=== PATIENT | female | born 1995 | race Caucasian/White ===

== ENCOUNTER → 2019-06-02 10:33 | Outpatient (CLI) | payer OTHER, MEDICAID, SELFPAY ==
[2019-06-02 10:47] LABS: RBC Urine None Seen (0-5/HPF); WBC Urine None Seen (0-5/HPF)
[2019-06-02 11:40] LABS: Appearance Urine UA CLEAR; Bilirubin Urine UA NEGATIVE (NEGATIVE); Color Urine UA YELLOW; Glucose Urine UA NEGATIVE (Negative); Ketones Urine UA NEGATIVE (NEGATIVE); Leukocyte Esterase Urine UA NEGATIVE (NEGATIVE); Nitrite Urine UA NEGATIVE (Negative); Occult Blood Urine UA NEGATIVE (Negative); Protein Urine UA NEGATIVE (Negative); Specific Gravity Urine UA <=1.005 (1.000-1.035); Urobilinogen Urine UA 0.2 E.U./dL (0.2)
[2019-06-02 11:59] LABS: pH Urine UA 6.5 (4.5-8.0)
[2019-06-02 12:00] LABS: Bacteria Urine Many (>30); Culture Indicated Urine Cult Not Indicated; Squamous Epithelial Cell Urine 5-10 /HPF (0-5/HPF)
== END ==
DX: R30.0 Dysuria (principal)
CPT/HCPCS: 81001

== ENCOUNTER → 2022-11-28 12:32 | Outpatient (CLI) | payer OTHER, MEDICAID, SELFPAY ==
[2022-11-30 20:07] LABS: AFP, Serum 46.9 ng/mL (.); Estriol, Free 1.51 ng/mL (.); Inhibin A, Dimeric 161.25 pg/mL (.); Inhibin A, MoM 1.24 (.); Maternal Ethnicity Caucasian (.); Maternal Weight 204 lbs (.); Number of Fetuses No (.); OSBR Risk 1 IN 6499 (.); Results Report (.); Test Results *Screen Negative* (.); hCG, MoM 0.97 (.); hCG, Serum 22560 mIU/mL (.)
== END ==
PROVIDERS: Referring Provider Obstetrics & Gynecology; Visit Provider Obstetrics & Gynecology
DX: Z34.82 Encounter for supervision of other normal pregnancy, second trimester (principal); Z3A.18 18 weeks gestation of pregnancy
CPT/HCPCS: 36415; 82105; 82677; 84702; 86336

== ENCOUNTER → 2022-12-12 10:11 | Outpatient (CLI) | payer OTHER, MEDICAID, SELFPAY ==
--- NOTE | 2022-12-12 10:12 | DI.US.S_ITS ---
PROCEDURE: US OB >= 14 WEEKS FETUS INDICATIONS: ANATOMY OUTSIDE/PRIOR DATING DATA: Last menstrual period (LMP): 07/22/2022. LMP-based estimated date of delivery (RISHI): 04/28/2023. First dating scan (date and location): 12/12/2022. Estimated date of delivery (RISHI) from first dating scan: 04/24/2023. The calculations are made using the working RISHI of 04/28/2023. TECHNIQUE: Real-time scanning was performed of the fetus, with image documentation and biometric measurements. Endovaginal scanning: None COMPARISON: None. FINDINGS: General: A single living intrauterine gestation is present. Presentation: Transverse. Placenta: Placental position is posterior , without previa. Amniotic fluid index: 17.9 cm, normal range is 5-24 cm. Single deepest vertical pocket is 5.5 cm. heart rate: 139 beats per minute. Maternal cervical canal: 5.3 cm long. Normal lower limit is 2.5 cm. biometrics: Biparietal diameter: 4.9 cm, 20 week 6 day Head circumference: 18.9 cm, 21 week 2 day Abdominal circumference: 15.7 cm, 20 week 6 day Femur length: 3.5 cm, 21 week 1 day Clinically estimated gestational age: 20 week 3 day Composite gestational age from present scan: 21 week 0 day Estimated weight and percentile: 391 g, 76th percentile Anatomic survey: Neuro: Ventricles are non-dilated at less than 10 mm. Cisterna magna is normal at 3-11 mm. Cerebellum is normal in size and morphology. Nuchal skin fold: Normal at less than 6 mm between 14-21 weeks gestational age. Face: Nose and lips, facial profile are normal. Spine: No evidence for spina bifida. Heart: 4-chambered heart is present, with normal ventricular outflow tracts. Diaphragm: Diaphragm is intact. Stomach: Left-sided stomach is present. Kidneys: No hydronephrosis. Normal is less than 5 mm in 2nd trimester, less than 7 mm in 3rd trimester. Cord: 3-vessel cord has orthotopic insertion. Bladder: Normal in size. Extremities: All 4 extremities identified. IMPRESSION: Single live intrauterine consistent with a 21 week 0 day gestation by current ultrasound Approved by: Ricardo Casey M.D. on 12/12/2022 at 17:20
== END ==
PROVIDERS: Referring Provider Obstetrics & Gynecology; Visit Provider Obstetrics & Gynecology
DX: Z34.82 Encounter for supervision of other normal pregnancy, second trimester (principal); Z3A.21 21 weeks gestation of pregnancy
CPT/HCPCS: 76811

== ENCOUNTER 2023-05-01 19:09 | Inpatient (IN) | payer OTHER, MEDICAID, SELFPAY ==
--- NOTE | 2023-05-01 20:28 | PM.OBHP.1 ---
OB HPI Date/Time Date of admission: 05/01/23 Date Patient Seen: 05/01/23 Time Patient Seen: 20:29 History of Present Condition Chief complaint: LABOR : 4 Para: 2 Estimated Date of Delivery: 04/28/23 Estimated Gestational Age (weeks): 40 Narrative: Desiree Lamar is a 27 year old female admitted for change in cervical dilation, group B strep positive with history of fast labor Indications Indication for induction OB: history of rapid labor History of Present care: good care, initiated at week # (6), number of visits (11) and pounds weight gain (24) Dating criteria: based on 1st trimester US only Ultrasounds: normal mid trimester US Obstetrical complications: none Medical complications: none Preadmission Labs Blood type: A (+) positive -: Antibody screen: negative, GBS status: positive (Per patient, history of group B strep positive), HBsAG: negative, HIV: negative and RPR/VDLR: negative -: Chlamydia screen: not detected and Gonorrhea screen: not detected -: Rubella: immune and Varicella: immune HCAB: negative Quad screen: Normal 1 hr GTT: 92 Prior (ies) History: 03/09/13 38 9 7 lb 11 oz Femalevaginallive - full term IH 9 months noneHailee 02/19/17 40 6 8 lb 6 oz Malevaginallive - full termnoneIH 6 months noneGraycyn 10/10/18 14 spontaneous Evaluation Evaluation Baseline heart rate: 150 Variability: Moderate (11-25) monitor accelerations: Present Monitor Decelerations: Absent Contraction Frequency (minutes): 0 Category of Tracing: Reactive Status: Category l Dilation (cm): 5 Effacement (%): 80 station: -1 Position of cervix: posterior Consistency: soft PFSH Medical History (Updated 05/01/23 @ 17:32 by Tram Spears MD) Hemorrhagic ovarian cyst Migraine depression Surgical History (Updated 10/19/22 @ 08:38 by Sudha Santiago RN) H/O dilation and curettage (~10/10/18) History of third molar tooth extraction History of tonsillectomy Status post myringotomy with insertion of tube Family History (Updated 10/19/22 @ 08:39 by Sudha Santiago RN) Mother Endometriosis Social History marital status: unmarried,living together number of children: 2 (pt's children live with their father) household members: significant other lives independently: Yes housing: other (trailer) pets and animals: No education level: high school (11th grade) occupational status: employed (works in a sandwich shop) current occupational exposures/hazards: No special titus needs: No travel history: over 6 months ago seatbelt use: always water heater temp set < 120 deg: Yes working smoke detector in home: Yes fire extinguisher in home: Yes carbon monox detector in home: Yes firearms in home: No do you feel safe at home: Yes Smoking Status: Former smoker (Quit 07/2021) second hand exposure: No alcohol intake: never substance use type: does not use during the past year weight has: increased > 10 lbs (states usually weighs ~160 lb) daily servings fruits/ve or more times/day caffeine: Yes (1 cup coffee in AM) Type(s) of exercise: walking (3-4 miles/day to work and home) frequency: 5-6 times per week Meds Home Medications and Allergies Home Medications Medication Instructions Recorded Confirmed Type ferrous sulfate 325 mg (65 mg 325 mg PO Q3-4D 10/19/22 05/01/23 History iron) tablet prenat.vits,deirdre,[id number] 1 tab PO DAILY 10/19/22 05/01/23 History acyclovir 400 mg tablet 400 mg PO QID 05/01/23 05/01/23 History Allergies Allergy/AdvReac Type Severity Reaction Status Date / Time Penicillins [PENICILLINS] Allergy Severe , Unverified 05/01/23 16:47 FAMILY HISTORY adhesive [ADHESIVE] Allergy Mild RASH Unverified 05/01/23 16:47 diphenhydramine AdvReac Severe TWITCH Unverified 05/01/23 16:47 [From BENADRYL ALLERGY] ondansetron AdvReac Severe N/V SHAKES Unverified 05/01/23 16:47 [From ZOFRAN ( SWEATS HYDROCHLORIDE)] sertraline [From ZOLOFT] AdvReac Severe N/V Unverified 05/01/23 16:47 Review of Systems Review of Systems Narrative: Patient with irregular contractions. No headaches. No leakage of fluid. Vaginal bleeding after cervix check in the office. Good movement. OB Exam Vital signs Blood Pressure: 104/62 Pulse Rate: 92 Temperature: 35.9 F Narrative Exam Narrative: HEENT exam within normal limits. Lungs are clear to auscultation percussion. Heart is regular rate and rhythm no S3-S4 murmurs. Abdomen is gravid. Fetus is vertex. Extremities without edema and nontender. Assessment and Plan Assessment and Plan Assessment and Plan narrative: 27-year-old 4 para 2, 40 week 3 day gestation with advanced cervical dilation, history of positive group B strep and fast labor. Patient will be started on IV antibiotics and AROM after 4 hours.
[2023-05-01 20:36] VITALS: BP 104/62; PULSE 92; TEMP 2.2; TEMP 35.9
[2023-05-01 21:35] LABS: Add Manual Diff / Slide Review NO; Basophils Absolute Auto 0 /uL (0-100); Basophils Percent Auto 0.2 % (0-2); Eosinophils Absolute Auto 100 /uL (0-450); Eosinophils Percent Auto 0.7 % (2-4); Hematocrit 34.8 % (36-46); Lymphocytes Absolute Auto 1300 /uL (1100-4500); Lymphocytes Percent Auto 13.6 % (25-40); Mean Corpuscular HGB Conc 34.4 % (30-36); Mean Corpuscular Hemoglobin 31.9 PG (26-34); Mean Corpuscular Volume 92.9 fL (80-100); Monocytes Absolute Auto 500 /uL (0-900); Neutrophils Absolute Auto 7400 /uL (1500-7000); Neutrophils Percent Auto 80.5 % (50-75); Platelet Count 233 X10^3/uL (150-400); Red Blood Cell Count 3.75 X10^6/uL (4.0-5.2); White Blood Cell Count 9.2 X10^3/uL (4.5-11.0)
[2023-05-01] MEDS: CLINDAMYCIN 900 MG/50 ML PIGGYBACK 50 MG IV (21:35)
[2023-05-01] MEDS: LACTATED RINGERS 1,000 ML 100 ML IV (21:35)
[2023-05-02 00:40] LABS: UR Morphine/Opiate cutoff 300 Negative (Negative); Ur Creatinine 20 (Normal); Ur Specific Gravity 1.015 (Normal); Urine Amphetamines Negative (Negative); Urine Barbiturates Negative (Negative); Urine Benzodiazepines Negative (Negative); Urine Cocaine Negative (Negative); Urine MDMA Negative (Negative); Urine Methadone Negative (Negative); Urine Methamphetamines Negative (Negative); Urine Phencyclidine Negative (Negative); Urine Tetrahydrocannabinol Negative (Negative); Urine Tricyclic Antidepressant Negative (Negative); Urine pH 5 (Normal)
[2023-05-02 00:41] LABS: Urine Oxycodone Negative (Negative)
[2023-05-02] MEDS: CLINDAMYCIN 900 MG/50 ML PIGGYBACK 50 MG IV ×2 (05:46→13:20)
[2023-05-02 06:51] VITALS: BP 104/62
--- NOTE | 2023-05-02 07:31 | PM.OBPNLAB ---
Date/Time Date Patient Seen: 05/02/23 Time Patient Seen: 07:31 Pain Control Pain control: tolerating well Comments: Rare contractions. Blood pressure 86/47, pulse 60, temperature 36.0? Pelvic Exam Dilation (cm): 5 Effacement (%): 80 station: -1 Amniotic membrane status: Ruptured (Clear fluid) Contractions Contractions on admission: irregular Monitor mode: External Contraction pattern: Irregular Status status: Category l Heart Rate Baseline: 130 Monitor Accelerations: Present Monitor Decelerations: Absent Monitor Variability: Moderate Assessment and Plan Assessment: other (AROMed) Comments: Due to staffing unable to perform AROM until now. Anticipate vaginal delivery.
[2023-05-02] MEDS: OXYTOCIN PREMIX 30 UNIT/500 ML PLAST..BAG IV (11:59)
--- NOTE | 2023-05-02 16:14 | PM.OBPRVD ---
Labor & Delivery Delivery date: 05/02/23 Induction method: AROM Delivery monitor: external FHT and external uterine Route of delivery: L&D Laceration Description: None Estimated blood loss (mL): 300 Anesthesia Type: None [place] Baby 1: gender: Female Presentation: vertex Position: Left Occiput Anterior Placenta delivery description: Spontaneous Cord Vessel Description: 3 Vessels score (1 min): 9 score (5 min): 9 weight: 8 lb 7 oz Plan for aftercare: Routine care
[2023-05-03] MEDS: ACETAMINOPHEN 325 MG TABLET 650 MG PO (02:25)
[2023-05-03 06:24] LABS: Hematocrit 30.9 % (36-46); Hemoglobin 10.7 g/dL (12.0-16.0)
[2023-05-03] MEDS: PRENATAL VIT,CALC/IRON/FOLIC 1 TABLET 1 TAB PO (09:13)
--- NOTE | 2023-05-03 11:12 | P.PNOB_ITS ---
Subjective - OB Subjective Patient comments: no complaints and pain well controlled (08/28. PATIENT COMPLAINS OF CRAMPING WHILE . SHE STATES HER BLEEDING IS MINIMAL AT THIS TIME.) Vincent baby status: doing well Vincent feeding status: exclusively breast feeding Date Patient Seen: 05/03/23 Time Patient Seen: 11:15 Interval history: PATIENT IS STATUS POST SPONTANEOUS VAGINAL DELIVERY WITH A 300 CC BLOOD LOSS. Exam Const General: cooperative Nutritional Appearance: overweight Orientation: alert, awake and oriented x3 Bimanual Exam- Vagina & Uterus: enlarged (UTERUS IS U-2 NONTENDER) Extrem General: no calf tenderness Objective Labs 05/03/23 06:11 Labs: Laboratory Results - last 24 hr 05/03/23 06:11 Hgb 10.7 L Hct 30.9 L Assessment & Plan Plan day: 1 plan OB: routine care and follow up 6 weeks (WITH DR. DUENAS IN 4 WEEKS) Time Spent With Patient Time: Total time spent is greater than 50% in coordination of care (as documented) at patient's floor/unit and/or counseling patient: Time with patient: less than 15 minutes (REVIEWED , PELVIC REST, CONTRACEPTION. DISCUSSED PELVIC INFECTION WELL SIGNS AND SYMPTOMS OF PREECLAMPSIA.)
--- NOTE | 2023-05-03 11:19 | PM.OBDS.1 ---
Discharge Providers Provider Date of admission: 05/01/23 19:09 Discharge Date: 05/03/23 Primary care physician: MD HENRIQUE Consults: 05/01/23 21:28 Consult to Anesthesiology Urgent Comment: Consulting Provider: Anesthesiologist Reason for consultation: Epidural Has provider been notified: No Discharge provider: Malcolm Randolph MD Summary Hospital Course Date Patient Seen: 05/03/23 Time Patient Seen: 11:20 Peripartum Data Delivery Method: Natural Vaginal Laceration Description: None complications: none (MILD ANEMIA.) Status at Discharge Cognitive/behavioral status at discharge: oriented and calm Functional status at discharge: independent ambulation Overall status at discharge: patient is back to baseline Time Spent with Patient Time attestation: Total time spent providing and/or coordinating discharge services: Time spent: Less than 30 minutes Objective Labs 05/03/23 06:11 Labs: Laboratory Results - last 24 hr 05/03/23 06:11 Hgb 10.7 L Hct 30.9 L Exam Const General: cooperative, healthy appearing and comfortable Bimanual Exam- Vagina & Uterus: uterine shape normal (U -2 NONTENDER) Discharge Plan Discharge Plan Patient Disposition: Home Discharge orders & Medications Prescriptions: Continued prenat.vits,deirdre,anp-fpep-mxztg Tablet 1 tab PO DAILY Discontinued acyclovir 400 mg tablet 400 mg PO QID ferrous sulfate 325 mg (65 mg iron) tablet 325 mg PO Q3-4D Follow up/Referrals: Juanita Watts DO [Physician] - ( Appt: Dr. Watts: @ 11:30am) Visit Report/Discharge Packet Stand Alone Forms: Discharge: Care, Patient Portal/API, Stroke Signs & Symptoms Discharge Data Primary Care Provider: Miscellaneous,Doctor
== END 2023-05-03 12:01 | disposition home or self-care (01) | DRG 560 ==
PROVIDERS: Admitting Provider Specialist; Referring Provider Specialist; Visit Provider Specialist
DX: O98.82 Other maternal infectious and parasitic diseases complicating childbirth (principal); B95.1 Streptococcus, group B, as the cause of diseases classified elsewhere; Z3A.40 40 weeks gestation of pregnancy; Z37.0 Single live birth; O90.81 Anemia of the puerperium; D64.9 Anemia, unspecified
CPT/HCPCS: 36415; 59050; 59409; 80305; 85014; 85018; 85025; 86850; 86900; 86901; G0379; J2590

== ENCOUNTER 2025-02-21 22:00 | Emergency (ER) | payer OTHER, MEDICAID, SELFPAY ==
[2025-02-21 22:04] VITALS: BP 119/66; PULSE 98; RESP 20; TEMP 36.8; O2SAT 100; BMI 28.3
[2025-02-21] MEDS: IBUPROFEN 400 MG TABLET 800 MG PO (22:14)
[2025-02-21 22:25] LABS: Strep Grp A by PCR Rapid Positive (Negative)
[2025-02-21 22:59] LABS: Influenza A - CEPHEID Flu A NEGATIVE (NEGATIVE); Influenza B - CEPHEID Flu B NEGATIVE (NEGATIVE)
--- NOTE | 2025-02-21 23:00 | ED_ITS ---
HPI - URI/Sore Throat General Chief Complaint: Upper Respiratory Symptoms Stated Complaint: lip pain, neckpainx 4 days Time Seen by Provider: 02/21/25 22:58 Source: patient Mode of arrival: Ambulatory History of Present Illness HPI Narrative: 29-year-old female with 4 days duration sore throat, not really having any cough or ear pain or sinus congestion symptoms. Not currently taking any antibiotics. History of penicillin allergy noted. No recent exposure to any persons known to have strep. No recent exposure to other persons who also have sore throat. Moving neck well. Able to handle secretions. Related Data Home Medications ?Medication ?Instructions ?Recorded ?Confirmed prenat.vits,deirdre,mux-xojt-roada 1 tab PO DAILY 10/19/22 05/31/23 Previous Rx's ?Medication ?Instructions ?Recorded azithromycin 250 mg tablet 250 mg PO DAILY 4 days #4 t abs 02/21/25 Allergies Allergy/AdvReac Type Severity Reaction Status Date / Time Penicillins (PENICILLINS) Allergy Severe , Verified 02/21/25 22:05 FAMILY HISTORY adhesive (ADHESIVE) Allergy Mild RASH Verified 02/21/25 22:05 diphenhydramine (From AdvReac Severe TWITCH Verified 02/21/25 22:05 BENADRYL ALLERGY) ondansetron (From ZOFRAN ( AdvReac Severe N/V SHAKES Verified 02/21/25 22:05 HYDROCHLORIDE)) SWEATS sertraline (From ZOLOFT) AdvReac Severe N/V Verified 02/21/25 22:05 Patient History Medical History (Updated 02/21/25 @ 23:10 by Rafael Mari MD) Migraine depression Hemorrhagic ovarian cyst Surgical History (Updated 10/19/22 @ 08:38 by Sudha Santiago RN) H/O dilation and curettage (~10/10/18) Status post myringotomy with insertion of tube History of tonsillectomy History of third molar tooth extraction Family History (Updated 10/19/22 @ 08:39 by Sudha Santiago RN) Mother Endometriosis Social History marital status: unmarried,living together number of children: 2 (pt's children live with their father) household members: significant other lives independently: Yes housing: other (trailer) pets and animals: No education level: high school (11th grade) occupational status: employed (works in a sandwich shop) current occupational exposures/hazards: No special titus needs: No travel history: over 6 months ago seatbelt use: always water heater temp set < 120 deg: Yes working smoke detector in home: Yes fire extinguisher in home: Yes carbon monox detector in home: Yes firearms in home: No do you feel safe at home: Yes Smoking Status: Never smoker second hand exposure: No alcohol intake: never substance use type: does not use during the past year weight has: increased > 10 lbs (states usually weighs ~160 lb) daily servings fruits/ve or more times/day caffeine: Yes (1 cup coffee in AM) Type(s) of exercise: walking (3-4 miles/day to work and home) frequency: 5-6 times per week Smoking Status: Never smoker Exam Narrative Exam Narrative: GENERAL: Well-developed patient, in mild distress. HEAD: Atraumatic. Normocephalic. EYES: Pupils equal round and reactive. Extraocular motions intact. No scleral icterus. No injection or drainage. ENT: Nose without bleeding, purulent drainage. Throat with some erythema bilaterally, no asymmetry, no exudates, also no vesicles or ulcerations. Airway patent. Normal phonation, handle secretions well. NECK: Trachea midline. Non tender, moving neck well. CARDIOVASCULAR: Regular rate and rhythm without murmurs, gallops, or rubs. RESPIRATORY: Clear to auscultation. Breath sounds equal bilaterally. No wheezes, rales, or rhonchi. GASTROINTESTINAL: Abdomen soft, non-tender, nondistended. EXTREMITIES: No edema or joint tenderness. BACK: Nontender without deformity or crepitance. No flank tenderness. NEURO: AOx3. Motor functions grossly nonfocal. SKIN: No rash or erythema of visible areas Initial Vital Signs Initial Vital Signs: Vital Signs Temperature 98.3 F 02/21/25 22:04 Pulse Rate 98 H 02/21/25 22:04 Respiratory Rate 20 02/21/25 22:04 Blood Pressure 119/66 02/21/25 22:04 Pulse Oximetry 100 02/21/25 22:04 Oxygen Delivery Method Room Air 02/21/25 22:04 Course Orders Ordered: ED Orders 02/21/25 22:16 Covid-19 + FLU A/B + RSV - PCR Stat Strep Grp A by PCR Rapid Stat Discontinued Medications Azithromycin (Azithromycin 250 Mg Tablet) 500 mg PO NOW ONE Stop: 02/21/25 23:13 Last Admin: 02/21/25 23:16 Dose: 500 mg Documented By: YOLANDA Ibuprofen (Ibuprofen 400 Mg Tablet) 800 mg PO NOW ONE Stop: 02/21/25 22:09 Last Admin: 02/21/25 22:14 Dose: 800 mg Documented By: YOLANDA Vital Signs Vital signs: Vital Signs - 8 hr 02/21/25 22:04 02/21/25 23:20 Temperature 98.3 F Pulse Rate 98 H 87 Respiratory Rate 20 16 Blood Pressure 119/66 116/58 L Pulse Oximetry 100 98 Oxygen Delivery Method Room Air Room Air MDM - URI/Sore Throat Lab Data Attestation: I reviewed the patient's lab results. Lab results narrative: Strep screen group A positive. COVID influenza RSV negative. Labs: Lab Results 02/21/25 Range/Units 22:16 SARS-CoV-2 (PCR) Negative (Negative) Influenza A (RT-PCR) Flu a negative (NEGATIVE) Influenza B (RT-PCR) Flu b negative (NEGATIVE) RSV (PCR) Negative (Negative) Group A Strep (PCR) Positive H (Negative) MDM Narrative Medical decision making narrative: Rapid strep screen positive. COVID RSV influenza negative. Penicillin allergic. Azithromycin 500 mg dose dispensed, send prescription for azithromycin 250 mg daily for 4 more days. Advised use of Tylenol and or Motrin as needed for pain control or fever. Advised hydration. Return precautions discussed. Discharged home with family. Discharge Plan Departure Patient Disposition: Home Clinical Impression: Acute streptococcal pharyngitis Activity Restrictions/Additional Instructions: Recent sore throat for the last 4 days, not really having any cough or ear pain/drainage or sinus congestion symptoms. No recent antibiotics. Penicillin allergy noted. Respiratory panel swab for COVID influenza RSV viruses was negative. Streptococcal throat swab was positive. Azithromycin dose given in emergency department, prescription sent for further course to your pharmacy. Take antibiotics as directed. Take Tylenol and or Motrin as needed for pain and fever control. Drink plenty of fluids. Recheck if any change worsening symptoms or any concerns, or if not improving in the next 2-3 days. Prescriptions: New azithromycin 250 mg tablet 250 mg PO DAILY 4 Days Qty: 4 0RF Rx Instructions: start on day 2 of therapy No Action prenat.vits,deirdre,rlq-mvlo-avhoj Tablet 1 tab PO DAILY Referrals: Miscellaneous,Doctor, MD [Primary Care Provider, Medical] Stand Alone Forms: Patient Portal/API, Work Release Note
[2025-02-21 23:05] LABS: COVID-19 CEPHEID 4-PLEX PCR Negative (Negative)
[2025-02-21] MEDS: AZITHROMYCIN 250 MG TABLET 500 MG PO (23:16)
[2025-02-21 23:20] VITALS: BP 116/58; PULSE 87; RESP 16; O2SAT 98
== END 2025-02-21 23:22 | disposition home or self-care (01) ==
PROVIDERS: Emergency Provider Emergency Medicine
DX: J02.0 Streptococcal pharyngitis (principal)
CPT/HCPCS: 87637; 87651; 99283